=== PATIENT | female | born 1965 | race African-American/Black ===

== ENCOUNTER 2018-06-15 12:32 | Inpatient (IN) | payer OTHER ==
--- NOTE | 2018-06-15 12:55 | PDOC ---
History of Present Illness - General Chief Complaint: Blurry Vision Stated Complaint: BLURRY VISION Time Seen by Provider: 06/15/18 12:35 History Source: Patient Exam Limitations: No Limitations - History of Present Illness Initial Comments: 06/15/18 12:50 The patient is a 52F with a PMH of HTN and spinal stenosis who presents to the ER with complaints of blurry vision. The patient describes painless, sudden onset blurry vision which is constant and unchanged. She describes b/l blurry vision, diplopia, without any numbness, tingling, or weakness in her body. She denies any fevers, chills, CP, SOB but admits to a mild headache. The patient admits to not taking her BP meds since August. She has never had this in the past. Past History - Past Medical History Allergies/Adverse Reactions: Allergies Allergy/AdvReac Type Severity Reaction Status Date / Time metronidazole [From Flagyl] Allergy Verified 06/15/18 12:36 Metronidazole HCl Allergy Verified 06/15/18 12:36 [From Flagyl] Home Medications: Ambulatory Orders NK [No Known Home Medication] 06/15/18 COPD: No HTN: Yes - Surgical History Abdominal Surgery: (ECTOPIC PREG) - Suicide/Smoking/Psychosocial Hx Smoking Status: Yes Smoking History: Former smoker Have you smoked in the past 12 months: Yes Number of Cigarettes Smoked Daily: 20 Information on smoking cessation initiated: No Hx Alcohol Use: No Drug/Substance Use Hx: No Review of Systems - Review of Systems Able to Perform ROS?: Yes Comments:: 06/15/18 13:16 GENERAL/CONSTITUTIONAL: No fever or chills. No weakness. HEAD, EYES, EARS, NOSE AND THROAT: Positive for changes and blurry vision. No ear pain or discharge. No sore throat. CARDIOVASCULAR: No chest pain, palpitations, or lightheadedness. RESPIRATORY: No cough, wheezing, shortness of breath, or hemoptysis. GASTROINTESTINAL: No nausea, vomiting, diarrhea, constipation, or abdominal pain. GENITOURINARY: No dysuria, frequency, hematuria, or change in urination. MUSCULOSKELETAL: No joint or muscle swelling or pain. No neck or back pain. SKIN: No rash or lesions. NEUROLOGIC: No headache, numbness, tingling, focal weakness, loss of consciousness, or change in strength/sensation. Is the patient limited Mongolian proficient: No *Physical Exam - Vital Signs Last Vital Signs Temp Pulse Resp BP Pulse Ox 97.6 F 82 16 180/106 H 99 06/15/18 12:36 06/15/18 12:36 06/15/18 12:36 06/15/18 12:36 06/15/18 12:36 - Physical Exam Comments: 06/15/18 13:18 GENERAL: Well developed, well nourished. Awake and alert. No acute distress. HEENT: PERRLA, EOMI. 20/25 in b/l eyes. All visual almanza intact. Normocephalic , atraumatic. Hearing grossly normal. Moist mucous membranes. No conjunctival pallor. NECK: Supple. Full ROM. CARDIOVASCULAR: Regular rate and rhythm. No murmurs, rubs, or gallops. PULMONARY: No evidence of respiratory distress. Lungs clear to auscultation bilaterally. No wheezing, rales or rhonchi. ABDOMINAL: Soft. Non-tender. Non-distended. No rebound or guarding. GENITOURINARY: No CVA tenderness bilaterally. MUSCULOSKELETAL: Normal range of motion at all joints. No bony deformities or tenderness. EXTREMITIES: No cyanosis. No clubbing. No edema. No calf tenderness or swelling. SKIN: Warm and dry. Normal capillary refill. No rashes. No jaundice. NEUROLOGICAL: Alert, awake, appropriate. Cranial nerves 2-12 intact. No deficits to light touch and temperature in face, upper extremities and lower extremities. 5/5 strength in deltoids, biceps, triceps, quadriceps, hamstrings, and gastrocnemius. Normal speech. PSYCHIATRIC: Cooperative. Good eye contact. Appropriate mood and affect. ED Treatment Course - LABORATORY CBC & Chemistry Diagram: 06/15/18 14:00 06/15/18 14:00 - RADIOLOGY Radiology Studies Ordered: Category Date Time Status HEAD CT WITHOUT CONTRAST [CT] Stat CT Scan 06/15/18 12:50 Ordered Medical Decision Making - Medical Decision Making 06/15/18 13:22 The patient is a 52F with a PMH of untreated HTN and spinal stenosis who presents to the ER with painless diplopia and blurry vision. Concern for intracranial pathology but likely ophthalmic in origin. Will CT head. Case d/w Dr. Narayan who agrees to see the patient in his office when the patient leaves our department. Pending head CT. EKG NSR. Will treat BP with norvasc and clonidine patch. 06/15/18 13:39 Case d/w Dr. Hebert, neurology, who states that this is likely 2/2 a neuro deficit because of correction when each eye is covered. Will admit pt. 06/15/18 15:[address] Tay paged for admission. 06/15/18 16:08 I have endorsed the patient to Dr. Tay for admission. 06/15/18 21:55 Imaging news content specialist: Brain MRI negative. Negative brain MRA. Very mild stenosis of prox L ICA 30%. Given by Dr. Gaitan *DC/Admit/Observation/Transfer Diagnosis at time of Disposition: Diplopia, Blurry vision - Discharge Dispostion Condition at time of disposition: Guarded Decision to Admit order: Yes - Referrals - Patient Instructions - Post Discharge Activity
[2018-06-15] MEDS ORDERED: amLODIPine BESYLATE 5 MG TABLET (FP) PO ONE (13:03)
--- NOTE | 2018-06-15 13:05 | PDOC ---
Attending Attestation - HPI HPI: 06/15/18 13:35 The patient is a 52 year old Female with a significant past medical history of poorly controlled HTN and spinal stenosis who presents to the ER with complaints of blurry vision today. The patient reports sudden onset blurry vision which is constant and unchanged since onset earlier today. She describes blurry vision, diplopia, without any numbness or pain, tingling, or weakness in her body. She denies any fevers, chills, CP, SOB but admits to a mild headache. Allergies: Metronidazole - Physicial Exam PE: 06/15/18 13:36 A complete review of 10 out of 10 review of systems is taken and is negative apart from what is previously mentioned below and in the HPI. Vitals: Triage vital signs reviewed General Appearance: No acute distress, well nourished, well developed Head: Atraumatic Eyes: Pupils equal reactive round, extraocular movement intact Neck: Supple; No nuchal rigidity Chest Wall: Nontender Cardiac: Regular rate and rhythm, no murmurs, no rubs, no gallops Lungs: Clear to auscultation bilateral, good air movement bilaterally Abdomen: Soft, nondistended, normal bowel sounds, nontender to palpation Genitourinary: Rectal: Exam deferred Extremities: Full range of motion to all extremities, no cyanosis, clubbing, or edema Skin: Warm and dry, no rashes or lesions, no rash, no petechiae Neuro: AOX3; Cranial Nerves 2-12 grossly intact, Strength intact to all extremities, Sensation intact to all extremities, gait normal Psych: Normal mood, normal affect - Medical Decision Making 06/15/18 13:37 Documentation prepared by Emmanuelle Hernandez, acting as medical record retrieval specialist for Ko Wisdom MD, <Emmanuelle Hernandez - Last Filed: 06/15/18 13:35> - Resident Resident Name: Luke Ibarra - ED Attending Attestation I have performed the following: I have examined & evaluated the patient, The case was reviewed & discussed with the resident, I agree w/resident's findings & plan, Exceptions are as noted - Medical Decision Making Binocular double vision in the setting of moderate to severe hypertension CT ordered labs ordered neurology consult. We'll admit to hospital for further management as well as MRI brain MRA head and neck <Ko Wisdom - Last Filed: 06/15/18 14:07> Heart Score/ECG Review - ECG Impressions Comment:: 06/15/18 14:07 EKG performed at 1250 demonstrates normal sinus rhythm no ST elevations noted T- wave inversions Interpreted by me. <Ko Wisdom - Last Filed: 06/15/18 14:07>
[2018-06-15] MEDS ORDERED: amLODIPine BESYLATE 10 MG TABLET (FP) PO ONE (13:11)
[2018-06-15] MEDS ORDERED: amLODIPine BESYLATE 5 MG TABLET (FP) ONE (13:14)
[2018-06-15 14:23] LABS: BASO % 0.5 % (0-2.0); EOS % 1.6 % (0-4.5); HEMOGLOBIN 13.6 GM/dL (10.7-15.3); LYMPH % 39.1 % (8-40); MCH 29.1 pg (25.7-33.7); MCHC 33.1 g/dl (32.0-36.0); MEAN CELL VOLUME 87.9 fl (80-96); MEAN PLT VOLUME 6.7 fl (7.5-11.1); MONO % 3.8 % (3.8-10.2); PLATELET COUNT 306 K/MM3 (134-434); RBC 4.66 M/mm3 (3.60-5.2); RDW 13.4 % (11.6-15.6)
[2018-06-15 14:53] LABS: ALBUMIN 3.8 g/dl (3.4-5.0); ALK PHOS 108 U/L (45-117); ANION GAP 8 MMOL/L (8-16); BILIRUBIN,TOTAL 0.2 mg/dL (0.2-1); BLOOD UREA NITROGEN 14 mg/dL (7-18); CALCIUM 8.9 mg/dL (8.5-10.1); CHLORIDE 107 mmol/L (98-107); CO2 25 mmol/L (22-28); CREATININE 0.9 mg/dL (0.55-1.3); GLUCOSE,RANDOM 89 mg/dL (74-106); POTASSIUM 3.8 mmol/L (3.5-5.1); SGOT/AST 12 U/L (15-37); SGPT/ALT 23 U/L (13-61); SODIUM 140 mmol/L (136-145); TOT PROT 7.7 g/dl (6.4-8.2)
[2018-06-15 23:15] VITALS: BMI 30.9
[2018-06-15] MEDS ORDERED: amLODIPine BESYLATE 2.5 MG TABLET (FP) PO ONE (23:53)
[2018-06-16] MEDS: hydrALAZINE HCL 10 MG TABLET PO SCH ×3 (00:10→21:28)
[2018-06-16 07:54] LABS: BASO % 0.5 % (0-2.0); EOS % 1.7 % (0-4.5); HEMATOCRIT 40.7 % (32.4-45.2); HEMOGLOBIN 13.8 GM/dL (10.7-15.3); MCH 29.4 pg (25.7-33.7); MEAN CELL VOLUME 86.3 fl (80-96); MEAN PLT VOLUME 6.8 fl (7.5-11.1); MONO % 4.4 % (3.8-10.2); NEUT % 56.4 % (42.8-82.8); PLATELET COUNT 320 K/MM3 (134-434); RBC 4.72 M/mm3 (3.60-5.2); RDW 13.4 % (11.6-15.6); WHITE BLOOD COUNT 6.9 K/mm3 (4.0-10.0)
[2018-06-16 08:27] LABS: ALBUMIN 3.9 g/dl (3.4-5.0); ALK PHOS 108 U/L (45-117); ANION GAP 7 MMOL/L (8-16); BILIRUBIN,TOTAL 0.3 mg/dL (0.2-1); BLOOD UREA NITROGEN 14 mg/dL (7-18); CALCIUM 9.2 mg/dL (8.5-10.1); CHLORIDE 107 mmol/L (98-107); CO2 25 mmol/L (21-32); CREATININE 0.9 mg/dL (0.55-1.3); GLUCOSE,RANDOM 100 mg/dL (74-106); POTASSIUM 4.2 mmol/L (3.5-5.1); SGOT/AST 12 U/L (15-37); SGPT/ALT 19 U/L (13-61); SODIUM 139 mmol/L (136-145); TOT PROT 7.8 g/dl (6.4-8.2)
--- NOTE | 2018-06-16 08:56 | CON.CARD ---
Consult - History of Present Illness History of Present Illness: The patient is a 52F with a PMH of HTN and spinal stenosis who presents to the ER with complaints of blurry vision. The patient describes painless, sudden onset blurry vision which is constant and unchanged. She describes b/l blurry vision, diplopia, without any numbness, tingling, or weakness in her body. She denies any fevers, chills, CP, SOB but admits to a mild headache. The patient admits to not taking her BP meds since August. She has never had this in the past. - History Source History Provided By: Patient, Medical Record - Past Medical History Cardio/Vascular: Yes: HTN ...LMP: 12/19/13 ...: No - Alcohol/Substance Use Hx Alcohol Use: No - Smoking History Smoking history: Former smoker Have you smoked in the past 12 months: Yes Aproximately how many cigarettes per day: 20 If you are a former smoker, when did you quit?: JANUARY 2018 Home Medications - Allergies Allergies/Adverse Reactions: Allergies Allergy/AdvReac Type Severity Reaction Status Date / Time metronidazole [From Flagyl] Allergy Verified 06/15/18 12:36 Metronidazole HCl Allergy Verified 06/15/18 12:36 [From Flagyl] - Home Medications Home Medications: Ambulatory Orders NK [No Known Home Medication] 06/15/18 Review of Systems - Review of Systems Constitutional: reports: No Symptoms Eyes: reports: No Symptoms HENT: reports: No Symptoms Neck: reports: No Symptoms Cardiovascular: reports: No Symptoms Gastrointestinal: reports: No Symptoms Genitourinary: reports: No Symptoms Breasts: reports: No Symptoms Reported Musculoskeletal: reports: No Symptoms Integumentary: reports: No Symptoms Neurological: reports: Other (diplopia blurry vision) Endocrine: reports: No Symptoms Hematology/Lymphatic: reports: No Symptoms Psychiatric: reports: No Symptoms Vital Signs: Vital Signs Temperature 98.1 F 06/16/18 06:00 Pulse Rate 76 06/16/18 06:00 Respiratory Rate 18 06/16/18 06:00 Blood Pressure 157/85 06/16/18 06:00 O2 Sat by Pulse Oximetry (%) 99 06/15/18 23:20 Constitutional: Yes: Well Nourished, No Distress, Calm Eyes: Yes: WNL, Conjunctiva Clear, EOM Intact HENT: Yes: WNL, Atraumatic, Normocephalic Neck: Yes: WNL, Supple, Trachea Midline Respiratory: Yes: WNL, Regular, CTA Bilaterally Gastrointestinal: Yes: WNL, Normal Bowel Sounds Renal/: Yes: WNL Cardiovascular: Yes: WNL, Regular Rate and Rhythm Musculoskeletal: Yes: WNL Extremities: Yes: WNL Integumentary: Yes: WNL Neurological: Yes: WNL, Alert, Oriented ...Motor Strength: WNL Psychiatric: Yes: WNL, Alert, Oriented - Other Data Labs, Other Data: CBC, BMP 06/16/18 06:15 06/16/18 06:15 Troponin, BNP 06/15/18 14:00 Troponin I < 0.02 Troponin, BNP 06/15/18 14:00 Troponin I < 0.02 Laboratory Tests 06/15/18 06/15/18 06/15/18 14:00 14:00 14:00 WBC 6.0 RBC 4.66 Hgb 13.6 Hct 41.0 MCV 87.9 MCH 29.1 MCHC 33.1 RDW 13.4 Plt Count 306 MPV 6.7 L Absolute Neuts (auto) 3.3 Neutrophils % 55.0 Lymphocytes % 39.1 D Monocytes % 3.8 Eosinophils % 1.6 Basophils % 0.5 Nucleated RBC % 0 Sodium 140 Potassium 3.8 Chloride 107 Carbon Dioxide 25 Anion Gap 8 BUN 14 Creatinine 0.9 Creat Clearance w eGFR > 60 Random Glucose 89 Calcium 8.9 Total Bilirubin 0.2 AST 12 L ALT 23 Alkaline Phosphatase 108 Creatine Kinase 86 Troponin I < 0.02 Total Protein 7.7 Albumin 3.8 06/16/18 06/16/18 06:15 06:15 WBC 6.9 RBC 4.72 Hgb 13.8 Hct 40.7 MCV 86.3 MCH 29.4 MCHC 34.0 RDW 13.4 Plt Count 320 MPV 6.8 L Absolute Neuts (auto) 3.9 Neutrophils % 56.4 Lymphocytes % 37.0 Monocytes % 4.4 Eosinophils % 1.7 Basophils % 0.5 Nucleated RBC % 0 Sodium 139 Potassium 4.2 Chloride 107 Carbon Dioxide 25 Anion Gap 7 L BUN 14 Creatinine 0.9 Creat Clearance w eGFR > 60 Random Glucose 100 Calcium 9.2 Total Bilirubin 0.3 AST 12 L ALT 19 Alkaline Phosphatase 108 Creatine Kinase Troponin I Total Protein 7.8 Albumin 3.9 Imaging - Results Chest X-ray: Image Reviewed (no i/e) EKG: Image Reviewed (nsr wnl) Problem List - Problems (1) Blurry vision Code(s): H53.8 - OTHER VISUAL DISTURBANCES (2) Diplopia Code(s): H53.2 - DIPLOPIA (3) Bee sting reaction Code(s): T63.441A - TOXIC EFFECT OF VENOM OF BEES, ACCIDENTAL, INIT (4) Rectal bleed Code(s): K62.5 - HEMORRHAGE OF ANUS AND RECTUM Assessment/Plan htn hlp noncompliance diplopia plan cont med rx increased norvasc to 5 echo lipid profile will f/u coverage for dr. Zepeda
[2018-06-16] MEDS: amLODIPine BESYLATE 5 MG TABLET (FP) PO SCH (09:45)
[2018-06-16] MEDS: ASPIRIN COATED 81 MG TABLET.EC PO SCH (09:45)
[2018-06-16] MEDS: HEPARIN NA (PORCINE) 5,000 UNITS/ML 1ML VIAL SQ SCH ×2 (09:45→21:28)
[2018-06-16] MEDS ORDERED: amLODIPine BESYLATE 2.5 MG TABLET (FP) PO SCH ×2 (10:00)
--- NOTE | 2018-06-16 11:33 | CON.NEURO ---
Consult Consult Specialty:: neurology - History of Present Illness Chief Complaint: b/l Blurry vision History of Present Illness: The patient is a 52F with a PMH of HTN and spinal stenosis who presents to the ER with complaints of blurry vision. The patient describes painless, sudden onset blurry vision which is constant and unchanged. She describes b/l blurry vision, diplopia, without any numbness, tingling, or weakness in her body. She denies any fevers, chills, CP, SOB but admits to a mild headache. The patient admits to not taking her BP meds since August. She has never had this in the past. She states that has been having b/l occipital headache since 2 days ago , which fluctuates moderate to severe w b/l blurry vision and binocular diplopia ; her headache also travels to the back of her neck ; subsided from yesterday ; has some photophobia ; no h/o migraine headache , no numbness, weakness, dysarthria or dysphasia , no face droop. - History Source History Provided By: Patient - Past Medical History Cardio/Vascular: Yes: HTN ...LMP: 12/19/13 ...: No - Alcohol/Substance Use Hx Alcohol Use: No - Smoking History Smoking history: Former smoker Have you smoked in the past 12 months: Yes Aproximately how many cigarettes per day: 20 If you are a former smoker, when did you quit?: JANUARY 2018 Home Medications - Allergies Allergies/Adverse Reactions: Allergies Allergy/AdvReac Type Severity Reaction Status Date / Time metronidazole [From Flagyl] Allergy Verified 06/15/18 12:36 Metronidazole HCl Allergy Verified 06/15/18 12:36 [From Flagyl] - Home Medications Home Medications: Ambulatory Orders NK [No Known Home Medication] 06/15/18 Review of Systems - Review of Systems Constitutional: reports: No Symptoms Eyes: reports: Double Vision HENT: reports: No Symptoms Cardiovascular: reports: No Symptoms Respiratory: reports: No Symptoms Gastrointestinal: reports: No Symptoms Genitourinary: reports: No Symptoms Physical Exam-Neuro Vital Signs: Vital Signs Temperature 97.5 F L 06/16/18 09:38 Pulse Rate 77 06/16/18 09:38 Respiratory Rate 16 06/16/18 09:38 Blood Pressure 169/110 H 06/16/18 09:38 O2 Sat by Pulse Oximetry (%) 99 06/15/18 23:20 Constitutional: Yes: Well Nourished, No Distress, Calm Neck: Yes: Supple Cardiovascular: Yes: WNL, Regular Rate and Rhythm Respiratory: Yes: CTA Bilaterally Musculoskeletal: Yes: WNL Labs: CBC, BMP 06/16/18 06:15 06/16/18 06:15 Imaging - Results Cat Scan: Report Reviewed (Negative for acute event.) MRI: Image Reviewed (Mild b/o occipital swelling on my eye, no evidence of stroke or bleed.) Problem List - Problems (1) Diplopia Code(s): H53.2 - DIPLOPIA (2) Blurry vision Code(s): H53.8 - OTHER VISUAL DISTURBANCES (3) Headache Code(s): R51 - HEADACHE (4) Headache Code(s): R51 - HEADACHE Assessment/Plan 52 y/o AAF w h/o HTN and spinal stenosis p/w headache , blurry vision . She has GAMBOA for the past 2 days ass w binocular diplopia and blurry vision w hypertensive urgency ,non complaint w her BP meds. Her GAMBOA is mildly subsided, on exam , no papilledema , or color desaturation , no painful eye movement to suggest optic neuritis ; no focal weakness ; MRI brain mild swelling at b/l occipital to my eye - report pending . Hx and exam suggestive of ? PRES-POSTERIOR REVERSIBLE ENCEPHALOPATHY SYNDROME due to uncontrolled BP. Rec control BP - avoid quick drop on BP - bring down 25% Ophthalmology ref check B12, TSH ,RICKY Neuro[facility] q [address] [place] [address] per primary team. Thank you for allowing us to participate in the care of this pt. Jonathan Grfifin MD
[2018-06-16] MEDS ORDERED: FLU VACCINE QUAD 60 MCG/0.5 ML (MDV 18-19) IM ONE (12:11)
--- NOTE | 2018-06-16 13:03 | HP ---
Admitting History and Physical - Past Medical History Cardiovascular: Yes: HTN ...LMP: 12/19/13 ...: No - Smoking History Smoking history: Former smoker Have you smoked in the past 12 months: Yes Aproximately how many cigarettes per day: 20 If you are a former smoker, when did you quit?: JANUARY 2018 - Alcohol/Substance Use Hx Alcohol Use: No Home Medications - Allergies Allergies/Adverse Reactions: Allergies Allergy/AdvReac Type Severity Reaction Status Date / Time metronidazole [From Flagyl] Allergy Verified 06/15/18 12:36 Metronidazole HCl Allergy Verified 06/15/18 12:36 [From Flagyl] - Home Medications Home Medications: Ambulatory Orders NK [No Known Home Medication] 06/15/18 Physical Examination Vital Signs: Vital Signs Temperature 97.5 F L 06/16/18 09:38 Pulse Rate 84 06/16/18 12:12 Respiratory Rate 16 06/16/18 12:12 Blood Pressure 156/92 06/16/18 12:12 O2 Sat by Pulse Oximetry (%) 99 06/16/18 09:00 Labs: CBC, BMP 06/16/18 06:15 06/16/18 06:15
[2018-06-16] MEDS: ATORVASTATIN CA 40 MG TABLET (FP) PO SCH (21:28)
--- NOTE | 2018-06-17 08:54 | PN ---
Progress Note, Physician History of Present Illness: The patient is a 52F with a PMH of HTN and spinal stenosis who presents to the ER with complaints of blurry vision. The patient describes painless, sudden onset blurry vision which is constant and unchanged. She describes b/l blurry vision, diplopia, without any numbness, tingling, or weakness in her body. She denies any fevers, chills, CP, SOB but admits to a mild headache. The patient admits to not taking her BP meds since August. She has never had this in the past. - Current Medication List Current Medications: Active Medications Amlodipine Besylate (Norvasc -) 5 mg PO DAILY [facility] Last Admin: 06/16/18 09:45 Dose: 5 mg Aspirin (Ecotrin -) 81 mg PO DAILY [facility] Last Admin: 06/16/18 09:45 Dose: 81 mg Atorvastatin Calcium (Lipitor -) 40 mg PO HS [facility] Last Admin: 06/16/18 21:28 Dose: 40 mg Heparin Sodium (Porcine) (Heparin -) 5,000 unit SQ BID [facility] Last Admin: 06/16/18 21:28 Dose: 5,000 unit Hydralazine HCl (Apresoline -) 10 mg PO BID [facility] Last Admin: 06/16/18 21:28 Dose: 10 mg - Objective Vital Signs: Vital Signs Temperature 97.8 F 06/17/18 08:36 Pulse Rate 96 H 06/17/18 08:36 Respiratory Rate 18 06/17/18 08:36 Blood Pressure 153/106 H 06/17/18 08:36 O2 Sat by Pulse Oximetry (%) 98 06/16/18 21:00 Eyes: Yes: WNL, Conjunctiva Clear, EOM Intact HENT: Yes: WNL, Atraumatic, Normocephalic Neck: Yes: WNL, Supple, Trachea Midline Cardiovascular: Yes: WNL, Regular Rate and Rhythm Respiratory: Yes: WNL, Regular, CTA Bilaterally Gastrointestinal: Yes: WNL, Normal Bowel Sounds Genitourinary: Yes: WNL Musculoskeletal: Yes: WNL Extremities: Yes: WNL Edema: No Integumentary: Yes: WNL Neurological: Yes: WNL, Alert, Oriented ...Motor Strength: WNL Psychiatric: Yes: WNL Labs: CBC, BMP 06/16/18 06:15 06/16/18 06:15 Problem List - Problems (1) Blurry vision Code(s): H53.8 - OTHER VISUAL DISTURBANCES (2) Diplopia Code(s): H53.2 - DIPLOPIA (3) Bee sting reaction Code(s): T63.441A - TOXIC EFFECT OF VENOM OF BEES, ACCIDENTAL, INIT (4) Rectal bleed Code(s): K62.5 - HEMORRHAGE OF ANUS AND RECTUM Assessment/Plan htn hlp noncompliance diplopia plan cont med rx increased norvasc to 10 mg QD echo lipid profile will f/u coverage for dr. Zepeda
--- NOTE | 2018-06-17 09:16 | PN ---
Progress Note, Physician History of Present Illness: HPI: 52 y/o AAF w h/o HTN and spinal stenosis p/w headache , blurry vision . She has GAMBOA for the past 2 days ass w binocular diplopia and blurry vision w hypertensive urgency ,non complaint w her BP meds. Her GAMBOA is mildly subsided,, no papilledema , or color desaturation , no painful eye movement to suggest optic neuritis ; no focal weakness FU : doing better no more diplopia, GAMBOA MRI (-) - Current Medication List Current Medications: Active Medications Amlodipine Besylate (Norvasc -) 5 mg PO DAILY [facility] Last Admin: 06/16/18 09:45 Dose: 5 mg Aspirin (Ecotrin -) 81 mg PO DAILY [facility] Last Admin: 06/16/18 09:45 Dose: 81 mg Atorvastatin Calcium (Lipitor -) 40 mg PO HS [facility] Last Admin: 06/16/18 21:28 Dose: 40 mg Heparin Sodium (Porcine) (Heparin -) 5,000 unit SQ BID [facility] Last Admin: 06/16/18 21:28 Dose: 5,000 unit Hydralazine HCl (Apresoline -) 10 mg PO BID [facility] Last Admin: 06/16/18 21:28 Dose: 10 mg - Objective Vital Signs: Vital Signs Temperature 97.8 F 06/17/18 08:36 Pulse Rate 96 H 06/17/18 08:36 Respiratory Rate 18 06/17/18 08:36 Blood Pressure 153/106 H 06/17/18 08:36 O2 Sat by Pulse Oximetry (%) 98 06/16/18 21:00 Labs: CBC, BMP 06/16/18 06:15 06/16/18 06:15 Problem List - Problems (1) Hypertensive encephalopathy Code(s): I67.4 - HYPERTENSIVE ENCEPHALOPATHY (2) Blurry vision Code(s): H53.8 - OTHER VISUAL DISTURBANCES (3) Diplopia Code(s): H53.2 - DIPLOPIA (4) Headache Code(s): R51 - HEADACHE Assessment/Plan 52 y/o AAF w h/o HTN and spinal stenosis p/w headache , blurry vision . She has GAMBOA for the past 2 days ass w binocular diplopia and blurry vision w hypertensive urgency ,non complaint w her BP meds. IMPRESSION : hypertensive encephalopathy -resolved MRI (-) BP control - in process neuro sign off DR ARAUJO
[2018-06-17] MEDS: ASPIRIN COATED 81 MG TABLET.EC PO SCH (09:37)
[2018-06-17] MEDS: hydrALAZINE HCL 10 MG TABLET PO SCH ×2 (09:37→21:47)
[2018-06-17] MEDS: HEPARIN NA (PORCINE) 5,000 UNITS/ML 1ML VIAL SQ SCH ×2 (09:38→21:47)
[2018-06-17] MEDS: amLODIPine BESYLATE 5 MG TABLET (FP) PO SCH ×2 (09:41→21:47)
--- NOTE | 2018-06-17 19:19 | EKG ---
Test Reason : Blood Pressure : / mmHG Vent. Rate : 079 BPM Atrial Rate : 079 BPM P-R Int : 164 ms QRS Dur : 086 ms QT Int : 398 ms P-R-T Axes : 038 009 040 degrees QTc Int : 456 ms NORMAL SINUS RHYTHM NORMAL ECG NO PREVIOUS ECGS AVAILABLE Confirmed by MARY DELGADO MD ([id number]) on 06/17/2018 7:19:36 PM Referred By: Confirmed By:MARY DELGADO MD
--- NOTE | 2018-06-17 20:47 | PN ---
Progress Note, Physician History of Present Illness: Pt denies any visual problems Pt concerned about dc and getting her BP meds - Current Medication List Current Medications: Active Medications Amlodipine Besylate (Norvasc -) 5 mg PO DAILY [facility] Last Admin: 06/17/18 09:41 Dose: 5 mg Aspirin (Ecotrin -) 81 mg PO DAILY [facility] Last Admin: 06/17/18 09:37 Dose: 81 mg Atorvastatin Calcium (Lipitor -) 40 mg PO HS [facility] Last Admin: 06/16/18 21:28 Dose: 40 mg Heparin Sodium (Porcine) (Heparin -) 5,000 unit SQ BID [facility] Last Admin: 06/17/18 09:38 Dose: 5,000 unit Hydralazine HCl (Apresoline -) 10 mg PO BID [facility] Last Admin: 06/17/18 09:37 Dose: 10 mg - Objective Vital Signs: Vital Signs Temperature 98.1 F 06/17/18 20:19 Pulse Rate 92 H 06/17/18 20:19 Respiratory Rate 18 06/17/18 20:19 Blood Pressure 195/111 H 06/17/18 20:19 O2 Sat by Pulse Oximetry (%) 99 06/17/18 20:19 Neck: Yes: WNL, Supple Cardiovascular: Yes: WNL, Regular Rate and Rhythm Respiratory: Yes: WNL, Regular, CTA Bilaterally Gastrointestinal: Yes: WNL, Normal Bowel Sounds, Soft Neurological: Yes: WNL, Alert, Oriented ...Motor Strength: WNL Labs: CBC, BMP 06/16/18 06:15 06/16/18 06:15 Problem List - Problems (1) Hypertensive encephalopathy Assessment/Plan: ?TIA MRI/MRA brain did not show acute pathology DC planning for am Code(s): I67.4 - HYPERTENSIVE ENCEPHALOPATHY (2) Hypertensive urgency Assessment/Plan: Long d/w pt about need to be complaint w/ medds and diet BP stable Code(s): I16.0 - HYPERTENSIVE URGENCY
[2018-06-17] MEDS: ATORVASTATIN CA 40 MG TABLET (FP) PO SCH (21:47)
--- NOTE | 2018-06-18 08:53 | PN ---
Progress Note, Physician Chief Complaint: No chest pain or SOB Feeling well Diplopia resolved TELE: NSR - Current Medication List Current Medications: Active Medications Amlodipine Besylate (Norvasc -) 5 mg PO BID [facility] Last Admin: 06/17/18 21:47 Dose: 5 mg Aspirin (Ecotrin -) 81 mg PO DAILY [facility] Last Admin: 06/17/18 09:37 Dose: 81 mg Atorvastatin Calcium (Lipitor -) 40 mg PO HS [facility] Last Admin: 06/17/18 21:47 Dose: 40 mg Heparin Sodium (Porcine) (Heparin -) 5,000 unit SQ BID [facility] Last Admin: 06/17/18 21:47 Dose: 5,000 unit Hydralazine HCl (Apresoline -) 10 mg PO BID [facility] Last Admin: 06/17/18 21:47 Dose: 10 mg - Objective Vital Signs: Vital Signs Temperature 98.2 F 06/18/18 06:00 Pulse Rate 88 06/18/18 06:00 Respiratory Rate 18 06/18/18 06:00 Blood Pressure 147/108 H 06/18/18 06:00 O2 Sat by Pulse Oximetry (%) 99 06/17/18 21:00 Constitutional: Yes: Calm Cardiovascular: Yes: Regular Rate and Rhythm Respiratory: Yes: CTA Bilaterally Gastrointestinal: Yes: Soft Edema: No Neurological: Yes: Alert, Oriented Labs: CBC, BMP 06/16/18 06:15 06/16/18 06:15 Laboratory Tests 06/15/18 06/16/18 06/16/18 14:00 06:15 06:15 WBC 6.9 Hgb 13.8 Plt Count 320 Sodium 139 Potassium 4.2 BUN 14 Creatinine 0.9 Troponin I < 0.02 - ....Imaging EKG: Image Reviewed Assessment/Plan IMP: HTN, uncontrolled Diplopia, resolved: Negative MRI/MRA Needs BP adjusted. REC: Add HCTZ Follow BP Echo today Daily electrolytes
[2018-06-18] MEDS: ASPIRIN COATED 81 MG TABLET.EC PO SCH (09:20)
[2018-06-18] MEDS: amLODIPine BESYLATE 5 MG TABLET (FP) PO SCH ×2 (09:20→21:32)
[2018-06-18] MEDS: HEPARIN NA (PORCINE) 5,000 UNITS/ML 1ML VIAL SQ SCH ×2 (09:20→21:32)
[2018-06-18] MEDS: HYDROCHLOROTHIAZIDE 25 MG TABLET (FP) PO SCH (09:27)
--- NOTE | 2018-06-18 12:08 | ECHO ---
Name: ADOLFO ARIZMENDI Exam:Adult Echocardiogram Study Date: 06/18/2018 10:04 AM Age: 52 yrs Reason For Study: CVA Height: 64 in Weight: 180 lb BSA: 1.9 m2 MMode/2D Measurements & Calculations IVSd: 0.95 cm Ao root diam: 3.4 cm LVIDd: 4.7 cm LA dimension: 3.7 cm LVIDs: 3.5 cm ACS: 2.1 cm LVPWd: 0.81 cm IVSs: 0.97 cm LVPWs: 0.99 cm EDV(Teich): 103.1 ml ESV(Teich): 52.0 ml Doppler Measurements & Calculations MV E max ross: 55.5 cm/sec Ao V2 max: 106.0 cm/sec MV A max ross: 96.7 cm/sec Ao max P.5 mmHg MV E/A: 0.57 Ao V2 mean: 82.5 cm/sec Ao mean P.0 mmHg Ao V2 VTI: 13.4 cm Med Peak E' Ross: 6.3 cm/sec Med E/e': 8.8 Lat Peak E' Ross: 6.5 cm/sec Lat E/e': 8.5 Procedure The study was technically adequate with some images being suboptimal in quality. Left Ventricle The left ventricle is normal in size. Left ventricular systolic function is normal. Ejection Fraction = 60- 65%. Grade I diastolic dysfunction, (abnormal relaxation pattern). Right Ventricle The right ventricle is normal size. The right ventricle is hyperdynamic. Atria Normal left and right atrial size and function. Mitral Valve The mitral valve is grossly normal. There is trace mitral regurgitation. Tricuspid Valve The tricuspid valve is not well visualized. There is trace tricuspid regurgitation. There was insuffi cient TR detected to calculate RV systolic pressure. Aortic Valve The aortic valve is not well visualized. Trace aortic regurgitation. Pulmonic Valve The pulmonic valve is not well visualized. Great Vessels The aortic root is normal size. Pericardium/Pleura There is no pericardial effusion. Interpretation Summary There is no comparison study available. The left ventricle is normal in size. The right ventricle is normal size. The right ventricle is hyperdynamic. There is trace mitral regurgitation. Trace aortic regurgitation. There is trace tricuspid regurgitation. Left ventricular systolic function is normal. Ejection Fraction = 60-65%. Luke Khalil MD 06/18/2018 12:07 PM
[2018-06-18 12:56] LABS: CHOLESTEROL 277 mg/dL (50-200); HDL CHOLESTEROL 40 mg/dL (40-60); TRIGLYCERIDES 280 mg/dL (0-150)
--- NOTE | 2018-06-18 13:51 | RAPID ---
Physical Examination Vital Signs: Vital Signs Temperature 98.2 F 06/18/18 09:18 Pulse Rate 99 H 06/18/18 09:18 Respiratory Rate 18 06/18/18 09:18 Blood Pressure 149/93 06/18/18 09:18 O2 Sat by Pulse Oximetry (%) 99 06/18/18 09:00 Labs: CBC, BMP 06/16/18 06:15 06/16/18 06:15 Rapid Response - Rapid Response Assessment: rapid response called patient came back from a test with left arm pain that radiated to the back and double vision. In review of the tele monitor, patient was tachycardic to the 110's before the rapid response was called. Vital Signs upon arrival: HR 126 BP 151/114 saturation: 98 percent on 2L NC PE: appeared in acute distress lungs: CTA B/L cardio: tachycardic, s1 s2; no murmurs,rubs,gallops abdomen: soft; non-tender, non-distended +BS extremities; no edema ordered stat EKG and trops: -EKG showed sinus tach with new frequent PVC's -will f/u troponins and repeat BP in one hour
--- NOTE | 2018-06-18 18:42 | PN ---
Progress Note, Physician History of Present Illness: Events of today noted Pt states that she developed pain in LUE wc has now resolved - Current Medication List Current Medications: Active Medications Amlodipine Besylate (Norvasc -) 5 mg PO BID [facility] Last Admin: 06/18/18 09:20 Dose: 5 mg Aspirin (Ecotrin -) 81 mg PO DAILY [facility] Last Admin: 06/18/18 09:20 Dose: 81 mg Atorvastatin Calcium (Lipitor -) 40 mg PO HS [facility] Last Admin: 06/17/18 21:47 Dose: 40 mg Heparin Sodium (Porcine) (Heparin -) 5,000 unit SQ BID [facility] Last Admin: 06/18/18 09:20 Dose: 5,000 unit Hydrochlorothiazide (Hctz -) 25 mg PO DAILY [facility] Last Admin: 06/18/18 09:27 Dose: 25 mg - Objective Vital Signs: Vital Signs Temperature 97.9 F 06/18/18 15:55 Pulse Rate 98 H 06/18/18 15:55 Respiratory Rate 18 06/18/18 15:55 Blood Pressure 148/97 06/18/18 15:55 O2 Sat by Pulse Oximetry (%) 99 06/18/18 09:00 Neck: Yes: WNL, Supple Cardiovascular: Yes: WNL, Regular Rate and Rhythm Respiratory: Yes: WNL, Regular, CTA Bilaterally Gastrointestinal: Yes: WNL, Normal Bowel Sounds, Soft Labs: CBC, BMP 06/16/18 06:15 06/16/18 06:15 Problem List - Problems (1) Tachycardia Assessment/Plan: Now resolved CT scan head was normal As per cardio Echo pending Code(s): R00.0 - TACHYCARDIA, UNSPECIFIED (2) Hypertensive encephalopathy Assessment/Plan: ?TIA MRI/MRA brain did not show acute pathology Code(s): I67.4 - HYPERTENSIVE ENCEPHALOPATHY (3) Hypertensive urgency Assessment/Plan: Long d/w pt about need to be complaint w/ meds and diet BP stable Code(s): I16.0 - HYPERTENSIVE URGENCY
[2018-06-18] MEDS ORDERED: ACETAMINOPHEN 325 MG TABLET (FP) PO PRN (19:30)
[2018-06-18] MEDS: ATORVASTATIN CA 40 MG TABLET (FP) PO SCH (21:32)
--- NOTE | 2018-06-19 09:22 | PN ---
Progress Note, Physician Chief Complaint: Diastolic BP remains elevated TELE: NSR, no sig arrhythmias No chest pain, SOB. - Current Medication List Current Medications: Active Medications Acetaminophen (Tylenol -) 650 mg PO Q6H PRN PRN Reason: FEVER Aspirin (Ecotrin -) 81 mg PO DAILY [facility] Last Admin: 06/18/18 09:20 Dose: 81 mg Atorvastatin Calcium (Lipitor -) 40 mg PO HS [facility] Last Admin: 06/18/18 21:32 Dose: 40 mg Heparin Sodium (Porcine) (Heparin -) 5,000 unit SQ BID [facility] Last Admin: 06/18/18 21:32 Dose: 5,000 unit Hydrochlorothiazide (Hctz -) 25 mg PO DAILY [facility] Last Admin: 06/18/18 09:27 Dose: 25 mg Nifedipine (Procardia Xl -) 30 mg PO DAILY [facility] - Objective Vital Signs: Vital Signs Temperature 97.9 F 06/19/18 05:57 Pulse Rate 98 H 06/19/18 05:57 Respiratory Rate 18 06/19/18 05:57 Blood Pressure 131/101 H 06/19/18 05:57 O2 Sat by Pulse Oximetry (%) 98 06/18/18 21:00 Constitutional: Yes: No Distress, Calm Eyes: Yes: Conjunctiva Clear, EOM Intact Cardiovascular: Yes: Regular Rate and Rhythm Respiratory: Yes: CTA Bilaterally Gastrointestinal: Yes: Soft Edema: No Neurological: Yes: Alert, Oriented ...Motor Strength: WNL Labs: CBC, BMP 06/16/18 06:15 06/16/18 06:15 - ....Imaging EKG: Image Reviewed Assessment/Plan IMP: HTN, uncontrolled Diplopia, resolved: Negative MRI/MRA, normal echo REC: 1. To continue HCTZ 2. Switch Amlodipine to Nifedipine ER and titrate to goal BP 140/90
[2018-06-19] MEDS: HYDROCHLOROTHIAZIDE 25 MG TABLET (FP) PO SCH (09:36)
[2018-06-19] MEDS: ASPIRIN COATED 81 MG TABLET.EC PO SCH (09:36)
[2018-06-19] MEDS: NIFEdipine E.R. 30 MG TABLET (FP) PO SCH (09:37)
[2018-06-19] MEDS: HEPARIN NA (PORCINE) 5,000 UNITS/ML 1ML VIAL SQ SCH ×2 (09:37→21:31)
--- NOTE | 2018-06-19 12:55 | PN ---
Progress Note (short form) - Note Progress Note: Asked to come back and reassess Ms. Caldera who is a 52 year old woman admitted with hypertensive urgency. Also history of spinal stenosis (cervical). She still has mild headache though much better. She complains of visual problems that persist, though when she is pressed, and she puts on her glasses, the visual problems are now left monocular, rather than binocular. Her right eye corrects to where she was previously (by her judgment). She complains of increased pain in her neck radiating down her left arm, and this is likely due to her preexisting cervical spine disease. She has longstanding left index finger numbness and this persists. I think that this can be worked up as an outpatient. Recomend opthalmology consult, and from a neurologic standpoint, I have no objection to discharge to get this done, if they feel that she'd be better assessed in their office. In other words, the monocular nature of her current deficit, means that this is a pre-chiasmal problem, likely due to a problem within the eye itself, rather than within the brain. The cervical spine problem, is an acute exacerbation of a longstanding problem, and if she stays in the hospital she can get MRI of the c spine but this can also be done as an outpatient. Thanks.
--- NOTE | 2018-06-19 16:32 | EKG ---
Test Reason : Blood Pressure : / mmHG Vent. Rate : 113 BPM Atrial Rate : 113 BPM P-R Int : 158 ms QRS Dur : 078 ms QT Int : 336 ms P-R-T Axes : 054 025 051 degrees QTc Int : 460 ms SINUS TACHYCARDIA WITH FREQUENT PREMATURE VENTRICULAR COMPLEXES OTHERWISE NORMAL ECG WHEN COMPARED WITH ECG OF 15-JUN-2018 12:50, PREMATURE VENTRICULAR COMPLEXES ARE NOW PRESENT Confirmed by MD Giovani, Jeremiah ([id number]) on 06/19/2018 4:32:37 PM Referred By: Confirmed By:Jeremiah Matute MD
--- NOTE | 2018-06-19 18:41 | PN ---
Progress Note, Physician History of Present Illness: Pt states that she has a h/o chronic neck pain and was told she needed surgery on her C-spine - Current Medication List Current Medications: Active Medications Acetaminophen (Tylenol -) 650 mg PO Q6H PRN PRN Reason: FEVER Aspirin (Ecotrin -) 81 mg PO DAILY [facility] Last Admin: 06/19/18 09:36 Dose: 81 mg Atorvastatin Calcium (Lipitor -) 40 mg PO HS [facility] Last Admin: 06/18/18 21:32 Dose: 40 mg Heparin Sodium (Porcine) (Heparin -) 5,000 unit SQ BID [facility] Last Admin: 06/19/18 09:37 Dose: 5,000 unit Hydrochlorothiazide (Hctz -) 25 mg PO DAILY [facility] Last Admin: 06/19/18 09:36 Dose: 25 mg Nifedipine (Procardia Xl -) 30 mg PO DAILY [facility] Last Admin: 06/19/18 09:37 Dose: 30 mg - Objective Vital Signs: Vital Signs Temperature 98.1 F 06/19/18 14:00 Pulse Rate 106 H 06/19/18 14:06 Respiratory Rate 18 06/19/18 14:06 Blood Pressure 132/74 06/19/18 14:06 O2 Sat by Pulse Oximetry (%) 96 06/19/18 09:00 Neck: Yes: WNL, Supple Cardiovascular: Yes: WNL, Regular Rate and Rhythm Respiratory: Yes: WNL, Regular, CTA Bilaterally Gastrointestinal: Yes: WNL, Normal Bowel Sounds, Soft Labs: CBC, BMP 06/16/18 06:15 06/16/18 06:15 Problem List - Problems (1) Tachycardia Assessment/Plan: Heart rate slightly elevated Meds being adjusted Code(s): R00.0 - TACHYCARDIA, UNSPECIFIED (2) Hypertensive encephalopathy Code(s): I67.4 - HYPERTENSIVE ENCEPHALOPATHY (3) Hypertensive urgency Assessment/Plan: Long d/w pt about need to be complaint w/ meds and diet BP fluctuating Cont present regimen Code(s): I16.0 - HYPERTENSIVE URGENCY (4) Cervical radiculopathy Assessment/Plan: Spoke to pt about need for MRI C-spine as outpt Code(s): M54.12 - RADICULOPATHY, CERVICAL REGION
[2018-06-19] MEDS: ATORVASTATIN CA 40 MG TABLET (FP) PO SCH (21:31)
[2018-06-20 07:10] LABS: BASO % 0.4 % (0-2.0); EOS % 0.7 % (0-4.5); HEMATOCRIT 44.4 % (32.4-45.2); HEMOGLOBIN 14.9 GM/dL (10.7-15.3); LYMPH % 38.9 % (8-40); MCH 28.8 pg (25.7-33.7); MCHC 33.6 g/dl (32.0-36.0); MEAN CELL VOLUME 85.7 fl (80-96); PLATELET COUNT 349 K/MM3 (134-434); RBC 5.18 M/mm3 (3.60-5.2); RDW 12.9 % (11.6-15.6); WHITE BLOOD COUNT 7.7 K/mm3 (4.0-10.0)
[2018-06-20 08:15] LABS: ALBUMIN 3.9 g/dl (3.4-5.0); ALK PHOS 123 U/L (45-117); ANION GAP 7 MMOL/L (8-16); BILIRUBIN,TOTAL 0.4 mg/dL (0.2-1); BLOOD UREA NITROGEN 23 mg/dL (7-18); CALCIUM 9.3 mg/dL (8.5-10.1); CHLORIDE 104 mmol/L (98-107); CO2 26 mmol/L (21-32); CREATININE 1.2 mg/dL (0.55-1.3); GLUCOSE,RANDOM 112 mg/dL (74-106); POTASSIUM 4.3 mmol/L (3.5-5.1); SGOT/AST 15 U/L (15-37); SGPT/ALT 22 U/L (13-61); SODIUM 137 mmol/L (136-145)
--- NOTE | 2018-06-20 08:43 | PN ---
Progress Note, Physician Chief Complaint: no new complaints BP overall much improved. No new complaints, denies CP or SOB - Current Medication List Current Medications: Active Medications Acetaminophen (Tylenol -) 650 mg PO Q6H PRN PRN Reason: FEVER Aspirin (Ecotrin -) 81 mg PO DAILY [facility] Last Admin: 06/19/18 09:36 Dose: 81 mg Atorvastatin Calcium (Lipitor -) 40 mg PO HS [facility] Last Admin: 06/19/18 21:31 Dose: 40 mg Heparin Sodium (Porcine) (Heparin -) 5,000 unit SQ BID [facility] Last Admin: 06/19/18 21:31 Dose: 5,000 unit Hydrochlorothiazide (Hctz -) 25 mg PO DAILY [facility] Last Admin: 06/19/18 09:36 Dose: 25 mg Nifedipine (Procardia Xl -) 30 mg PO DAILY [facility] Last Admin: 06/19/18 09:37 Dose: 30 mg - Objective Vital Signs: Vital Signs Temperature 98.2 F 06/20/18 05:00 Pulse Rate 99 H 06/20/18 05:00 Respiratory Rate 18 06/20/18 05:00 Blood Pressure 133/85 06/20/18 05:00 O2 Sat by Pulse Oximetry (%) 96 06/19/18 20:20 Constitutional: Yes: No Distress, Calm Eyes: Yes: Conjunctiva Clear Cardiovascular: Yes: Regular Rate and Rhythm Respiratory: Yes: CTA Bilaterally Gastrointestinal: Yes: Soft Edema: No Neurological: Yes: Alert, Oriented ...Motor Strength: WNL Labs: CBC, BMP 06/20/18 06:10 06/20/18 06:10 - ....Imaging EKG: Image Reviewed Assessment/Plan IMP: HTN, uncontrolled Diplopia, resolved: Negative MRI/MRA, normal echo REC: 1. To continue HCTZ and Procardia XL Will need close outpatient f/u D/C tele
[2018-06-20] MEDS: ASPIRIN COATED 81 MG TABLET.EC PO SCH (09:26)
[2018-06-20] MEDS: HEPARIN NA (PORCINE) 5,000 UNITS/ML 1ML VIAL SQ SCH (09:26)
[2018-06-20] MEDS: NIFEdipine E.R. 30 MG TABLET (FP) PO SCH (09:26)
[2018-06-20] MEDS: HYDROCHLOROTHIAZIDE 25 MG TABLET (FP) PO SCH (09:26)
[2018-06-20 09:33] VITALS: BP 150/82; PULSE 98; TEMP 98
[2018-06-22] MEDS ORDERED: cloNIDine-TTS 0.1 MG/24 HRS PATCH.TDWK TD ONE (10:00)
== END 2018-06-20 14:25 | disposition home or self-care (01) | DRG 199 ==
LOC: JER 12:32 → JERBED 13:39 → J4W 22:46
PROVIDERS: ADMIT Internal Medicine; ATTEND Internal Medicine
DX: I16.0 Hypertensive urgency (principal); I67.4 Hypertensive encephalopathy; H53.8 Other visual disturbances; I10 Essential (primary) hypertension; K62.5 Hemorrhage of anus and rectum; R51 Headache; R00.0 Tachycardia, unspecified; M48.02 Spinal stenosis, cervical region; M54.12 Radiculopathy, cervical region; H53.2 Diplopia; Z87.891 Personal history of nicotine dependence; Z91.14 Patient's other noncompliance with medication regimen
CPT/HCPCS: 36415; 70450-TC; 70544-TC; 70547-TC; 70551-TC; 80053; 80061; 82550; 83721; 84484; 85025; 90688; 93005; 93010; 93306-TC; 93880-TC; 97116-GP; 97161-GP; 99284-25; G0008; J1644

== ENCOUNTER 2020-06-09 15:08 | Emergency (ER) | payer OTHER ==
[2020-06-09 15:18] VITALS: BP 147/91; PULSE 85; BMI 29.2
--- NOTE | 2020-06-09 15:53 | PDOC ---
History of Present Illness - General Chief Complaint: Pain Stated Complaint: BACK PAIN Time Seen by Provider: 06/09/20 15:21 - History of Present Illness Initial Comments: 06/09/20 15:51 54-year-old female with a past medical history of hypertension and dyslipidemia presents for rash on her right thigh x2 days. Pain started in her lower back and radiated down her leg and presented itself as a rash 2 days ago no systemic symptoms. She states the rash is painful. Past History - Medical History Allergies/Adverse Reactions: Allergies Allergy/AdvReac Type Severity Reaction Status Date / Time metronidazole [From Flagyl] Allergy Verified 06/09/20 15:19 Metronidazole HCl Allergy Verified 06/09/20 15:19 [From Flagyl] Home Medications: Ambulatory Orders Aspirin Coated [Ecotrin -] 81 mg PO DAILY #30 tablet.ec 06/20/18 Atorvastatin Ca [Lipitor] 40 mg PO HS #30 tablet 06/20/18 Hydrochlorothiazide [Hctz -] 25 mg PO DAILY #30 tablet 06/20/18 Nifedipine ER [Procardia XL -] 30 mg PO DAILY #30 tab.er.24 06/20/18 Acyclovir [Zovirax -] 200 mg PO 5XD #50 capsule 06/09/20 Oxycodone HCl/Acetaminophen [Percocet 5-325 mg Tablet] 1 - 2 tab PO Q6H PRN #20 tab MDD 6 06/09/20 Anemia: No Asthma: No Cancer: No Cardiac Disorders: No CVA: No COPD: No CHF: No Dementia: No Diabetes: No GI Disorders: No Disorders: No HTN: Yes Hypercholesterolemia: No Liver Disease: No Seizures: No Thyroid Disease: No - Surgical History Abdominal Surgery: (ECTOPIC PREG) Appendectomy: No Cardiac Surgery: No Cholecystectomy: No Lung Surgery: No Neurologic Surgery: No Orthopedic Surgery: No - Reproductive History Is Patient Now?: No - Psycho-Social/Smoking History Smoking Status: Yes Smoking History: Never smoked Have you smoked in the past 12 months: Yes Number of Cigarettes Smoked Daily: 20 If you are a former smoker, when did you quit?: JANUARY 2018 Review of Systems - Review of Systems Constitutional: No: Fever Musculoskeletal: Yes: Back Pain Integumentary: Yes: Lesions, Rash *Physical Exam - Vital Signs Last Vital Signs Temp Pulse Resp BP Pulse Ox 85 18 147/91 100 06/09/20 15:16 06/09/20 15:16 06/09/20 15:16 06/09/20 15:16 - Physical Exam 06/09/20 15:51 Lumbar spine skin color and temperature are normal there is a vesicular rash coming from laterally to anteriorly starting from the right hip wrapping around to the distal mid right thigh the rash is vesicular with normal surrounding skin color and temperature Medical Decision Making - Medical Decision Making 06/09/20 15:52 This is a shingles outbreak Percocet for pain Valtrex as an antiviral follow-up with primary care physician I have reviewed the pathophysiology with the patient. They are in agreement with the treatment plan all questions were answered to their satisfaction. Understanding for follow-up without fail was also conveyed to the patient. Again they are in agreement. Discharge - Discharge Information Problems reviewed: Yes Clinical Impression/Diagnosis: Shingles Condition: Stable Disposition: HOME - Admission No - Additional Discharge Information Prescriptions: Oxycodone HCl/Acetaminophen [Percocet 5-325 mg Tablet] 1 - 2 tab PO Q6H PRN #20 tab MDD 6 PRN Reason: Pain Acyclovir [Zovirax -] 200 mg PO 5XD #50 capsule - Follow up/Referral Referrals: Wilberto Nur MD [Primary Care Provider] - - Patient Discharge Instructions Additional Instructions: Please use the Percocet and Valtrex as directed. Return to the emergency room for worsening symptoms and without fail follow-up with your primary care physician in 1 to 2 days for further evaluation and treatment options. - Post Discharge Activity
== END 2020-06-09 15:55 | disposition home or self-care (01) ==
LOC: JERFT 15:08
DX: B02.9 Zoster without complications (principal)
CPT/HCPCS: 99282-25